=== PATIENT | female | born 1970 | race Caucasian/White ===

== ENCOUNTER 2016-08-28 19:58 | Inpatient (IN) | payer BC ==
[~2016-08-28] VITALS: Ht 160 cm; Wt 54.2 kg
[2016-08-28 20:00] VITALS: BP 151/102; PULSE 90; RESP 18; TEMP 98.2; O2SAT 98
--- NOTE | 2016-08-28 20:05 | NUR ---
Placed in room 03 . Placed on quality assurance monitor, blood pressure machine and pulse oximeter. To gown for exam. Side rails up. Report given to ALYSSA Calero.
--- NOTE | 2016-08-28 20:07 | NUR ---
Patient brought in by ambulance from store. Patient had a witnessed seizure, tonic-clonic per EMT. Patient has a 1cm laceration to posterior scalp. Patient remembers bending down to reach to a shelf and next being in the ambulance. Patient is AAOx4, unlabored breathing, no acute distress.
--- NOTE | 2016-08-28 20:08 | NUR ---
ER MD King at bedside for evaluation
--- NOTE | 2016-08-28 20:10 | NUR ---
Pt to bed 3. ER physician notified. In full C-spine precautions with hard C-collar and backboard in place.
[2016-08-28] MEDS ORDERED: ACETAMINOPHEN 325 MG TABLET PO ONE (20:30)
[2016-08-28] MEDS ORDERED: ACETAMINOPHEN 325 MG TABLET ONE (20:55)
--- NOTE | 2016-08-28 21:03 | NUR ---
Patient arrived with IV placed by EMT. IV is to right wrist, patent, clean, dry & intact.
[2016-08-28 21:10] LABS: BARBITURATE, URINE NEGATIVE (NEG <=200); BENZODIAZEPINE, URINE NEGATIVE (NEG <=150); CANNABINOID, URINE NEGATIVE (NEG <=50); COCAINE, URINE NEGATIVE (NEG <=150); METHAMPHETAMINES SCREEN,URINE NEGATIVE (NEG <=500); OPIATE, URINE NEGATIVE (NEG <=100); PHENCYCLIDINE SCREEN,URINE NEGATIVE (NEG <=25); UR TRICYCLIC ANTIDEPRESSANTS NEGATIVE (NEG <=300); URINE AMPHETAMINE NEGATIVE (NEG <=500); URINE METHADONE NEGATIVE (NEG <=200); URINE OXYCODONE SCREEN NEGATIVE (NEG <=100); URINE PROPOXYPHENE SCREEN NEGATIVE (NEG <=300)
[2016-08-28 21:12] LABS: CALCIUM 9.2 mg/dL (8.4-11.0); CREATININE 0.85 mg/dL (0.55-1.30); POTASSIUM 3.1 mmol/L (3.5-5.1)
[2016-08-28] MEDS ORDERED: LORazepam 2 MG/ML VIAL (FOR ER USE) IVP ONE (21:15)
[2016-08-28] MEDS ORDERED: PROCHLORPERAZINE EDISYLATE 10 MG/2 ML VIAL IVP ONE (21:15)
[2016-08-28 21:16] LABS: BASOPHILS % (AUTO) 0.1 % (0.0-2.0); EOSINOPHILS % (AUTO) 0.5 % (0.0-4.0); HEMATOCRIT 33.8 % (36-48); HEMOGLOBIN 11.5 g/dL (12.0-16.0); LYMPHOCYTES % (AUTO) 18.4 % (20.5-51.5); MEAN CORPUSCULAR HEMOGLOBIN 34 pg (27-31); MEAN CORPUSCULAR HGB CONC 34 % (32-36); MEAN CORPUSCULAR VOLUME 100 fL (79.0-98.0); MONOCYTES # (AUTO) 0.3 K/uL (0.0-1.0); MONOCYTES % (AUTO) 5.4 % (1.7-9.3); NEUTROPHILS # (AUTO) 4.2 K/uL (1.8-7.7); NEUTROPHILS % (AUTO) 75.6 % (40.0-70.0); PLATELET COUNT (AUTO) 180 K/uL (130-430); RED BLOOD CELL COUNT(AUTO) 3.38 MIL/uL (4.2-6.2); RED CELL DISTRIBUTION WIDTH 13.3 % (9.0-15.0); WHITE BLOOD COUNT (AUTO) 5.5 K/uL (4.8-10.8)
[2016-08-28 21:17] LABS: ALBUMIN 3.9 g/dL (3.4-4.8); TOTAL BILIRUBIN 0.6 mg/dL (0.0-1.0); TOTAL PROTEIN, SERUM 7.2 g/dL (6.4-8.3)
--- NOTE | 2016-08-28 22:29 | NUR ---
ER Physician at bedside. C-spine cleared by . Backboard removed with log roll technique. Moves all extremities before and after backboard removal. Hard collar removed by Dr. King.
[2016-08-28] MEDS ORDERED: POTASSIUM CHLORIDE 20 MEQ TAB.PRT.SR PO ONE (22:45)
--- NOTE | 2016-08-28 23:27 | NUR ---
MD Castañeda at bedside evaluating the patient
--- NOTE | 2016-08-28 23:43 | NUR ---
Transfer to [facility] via ACLS protocol. Licensed nurse present. IV present no signs or symptoms of infiltration.
[2016-08-28] MEDS ORDERED: DIPH-TET-PERTUS Vaccine 0.5 ML VIAL (ADACEL) I.M. ONE (23:45)
[2016-08-29 00:15] VITALS: BP 118/71; PULSE 74; RESP 20; TEMP 98.3; O2SAT 99
--- NOTE | 2016-08-29 00:27 | NUR ---
Admission Note Received patient from ER with diagnosis of Seizures. Initial Plan of Care discussed-patient verbalized understanding. Family at bedside. Oriented to room, call light, pain management and safety.
[2016-08-29] MEDS ORDERED: LORazepam 2 MG/ML VIAL IVP PRN ×2 (00:30→00:45)
--- NOTE | 2016-08-29 00:30 | NUR ---
Admission Assessment Received patient from ER, AAO x4, no acute distress noted, is at the bedside. Assessment complete, vital signs stable, no complain of pain at this time. Laceration noted to left scalp. Seizure precautions in place. Education provided to call for assistance if she needs to get out of bed, she verbalized understanding. Plan of care discussed with patient and at the bedside, they verbalized understanding. Patient was oriented to unit and room, able to demonstrate correct use of call light, able to make needs known and encouraged to do so. Call light is within reach, all fall and safety precautions in place, will continue to monitor for change in patient status.
--- NOTE | 2016-08-29 00:35 | NUR ---
CONSULTATION PAGED REASON FOR CONSULTATION:SZ WAS CONSULT CALLED?Y PERSON WHO WAS NOTIFIED:[facility] CONSULTING PHYSICIAN:ERNESTO ALBERTO (FRANCESCO KINGSLEY [employer] W[employer]ER) INSTRUCTIONAL TECHNOLOGY INSTRUCTOR SPECIALTY:NEURO INSTRUCTIONAL TECHNOLOGY INSTRUCTOR PHONE NUMBER:[phone]
[2016-08-29] MEDS ORDERED: levETIRAcetam 500 MG TABLET PO ONE (00:45)
[2016-08-29] MEDS ORDERED: HYDROcodone/ACETAMIN 10-325 MG TAB PO PRN (00:45)
[2016-08-29] MEDS ORDERED: HYDROcodone/ACETAMIN 5-325 MG TAB (NORCO/ VICODIN) PO PRN ×2 (00:45)
[2016-08-29] MEDS ORDERED: TEMAZEPAM 15 MG CAPSULE PO PRN (01:00)
[2016-08-29 01:04] VITALS: BP 118/71; PULSE 79; RESP 20; TEMP 98; O2SAT 99
--- NOTE | 2016-08-29 02:25 | NUR ---
RN Rounds Patient is resting quietly in bed, no acute distress noted. No seizure activity noted. Bedtime snack provided earlier. Reminded patient to call for assistance if she needs to get out of bed, she verbalize understanding. Call light is within reach, all fall and safety precautions in place, will continue to monitor.
[2016-08-29 03:57] VITALS: BP 111/74; PULSE 65; RESP 18; TEMP 98; O2SAT 98
--- NOTE | 2016-08-29 04:32 | NUR ---
RN Rounds Patient is sleeping but easily arousable, no acute distress noted or complain of pain at this time. Vital signs stable, sinus rhythm on the monitor. Seizure and safety precautions in place. Call light is within reach, will continue to monitor closely.
[2016-08-29] MEDS: ACETAMINOPHEN 325 MG TABLET PO PRN ×2 (05:49→20:24)
--- NOTE | 2016-08-29 06:49 | NUR ---
Closing Notes Patient is sleeping but easily arousable, complained of headache earlier, PRN pain medication was administered as ordered per MD. Upon reassessment patient verbalized relief of pain to tolerable level on pain scale. No seizure activity noted throughout shift. Patient is stable, all needs met throughout shift. Will continue to monitor until endorsed to AM nurse at bedside.
--- NOTE | 2016-08-29 07:47 | NUR ---
AM ROUNDS Pt A/O, denies pain at this time...HL to RW flushes well...Pt with dry blood to left side of head due to small laceration...Seizure pads in place...Pt aware of EEG scheduled today...Bed alarm on, call light/phone w/in reach...Will cont to montr
[2016-08-29] MEDS: levETIRAcetam 500 MG TABLET PO SCH ×2 (08:43→20:22)
[2016-08-29] MEDS: ATENOLOL 50 MG TABLET (TENORMIN) PO SCH ×2 (08:48→20:22)
--- NOTE | 2016-08-29 09:10 | NUR ---
RN ROUNDS PATIENT RESTING IN BED, AWAKE, ALERT AND ORIENTED X4, STATES MILD PAIN FROM HEAD LACERATION/HEMATOMA PATIENT STATES SHE HAS TYLENOL ALREADY AND PLACING AN ICE PACK OVER THE SITE HELPS HER, ASSESSMENT COMPLETE, EDUCATED THE PATIENT CURING BIN OPERATOR LIGHT SYSTEM AND TO CALL FOR ANY ASSISTANCE, PATIENT VERBALIZED UNDERSTANDING AT THIS TIME, PATIENT BED IN LOWEST POSITION, TWO SIDE RAILS UP, BED ALARM ON, FALL, SEIZURE AND ASPIRATION PRECAUTIONS IN PLACE, CALL LIGHT NEXT TO THE PATIENT'S HAND, BED CLOSE TO NURSE'S STATION.
--- NOTE | 2016-08-29 11:00 | NUR ---
ROUNDS PT STABLE... AT BEDSIDE...AWAITING EEG...WILL CONT TO MONITOR
[2016-08-29 12:29] VITALS: BP 117/72; PULSE 66; RESP 18; TEMP 98; O2SAT 98
--- NOTE | 2016-08-29 13:11 | NUR ---
PHYSICAL GEOGRAPHER AT BEDSIDE
--- NOTE | 2016-08-29 16:00 | NUR ---
ROUNDS PT STABLE... AT BEDSIDE...WILL CONT TO MONITOR
[2016-08-29 17:05] VITALS: BP 120/73; PULSE 74; RESP 18; TEMP 97.2; O2SAT 98
--- NOTE | 2016-08-29 19:57 | NUR ---
OPENING NOTE Pt. and report received from day shift nurse. Pt. is awake, alert, and oriented, resting quietly in bed and requested for lights to be turned off. Safety and seizure precautions in place. No s/s of seizure activity noted at this time. IV site to right wrist 20g is dry intact and saline locked. SCDS on to bilateral extremities. Educated pt. to use call light for needs and assistance OOB. Call light to right hand. Requested for bed alarm to be off but stated she will use call light for needs. Will continue to monitor.
[2016-08-29 20:20] VITALS: BP 130/75; PULSE 81; RESP 17; TEMP 99; O2SAT 99
--- NOTE | 2016-08-29 20:24 | NUR ---
PAIN Late entry due to pt. care. Pt. c/o "07/19" pain to head. Pt. medicated with Tylenol PO 1 tab as ordered PRN for mild pain. Educated pt. regarding medication and s/e. Pt. verbalized understanding. Safety and seizure precautions in place. Call light to right hand. Encouraged pt. to use call light for needs. Will continue to monitor.
--- NOTE | 2016-08-30 00:05 | NUR ---
ROUNDS Pt. is resting quietly in bed with eyes closed, easily arousable to name. Respirations are even and unlabored with visible chest rise and fall. No s/s of acute distress. No s/s of seizure activity noted at this time. Safety and seizure precautions in place. Bed alarm on. Call light to right hand. Will continue to monitor.
[2016-08-30 00:22] VITALS: BP 89/50; PULSE 60; RESP 16; TEMP 97.4; O2SAT 99
--- NOTE | 2016-08-30 02:13 | NUR ---
PATIENT RESTING Pt. is resting quietly in bed with eyes closed, respirations are even and unlabored with visible chest rise and fall. No s/s of acute distress. Safety and seizure precautions in place. No s/s of seizure activity noted at this time. Bed alarm on. Call light on lap. Will continue to monitor.
--- NOTE | 2016-08-30 03:30 | NUR ---
RECREATIONAL VEHICLE REPAIRER AT BEDSIDE RECREATIONAL VEHICLE REPAIRER assisted pt. to bathroom to void. VSS. Pt. denies any pain or discomfort but stated she usually has a bowel movement daily and has not had one today and requested stool softener. I said we will follow up with MD in the AM. Encouraged pt. to use call light for needs. Safety and seizure precautions are in place. No s/s of seizure activity noted at this time. Bed alarm on. Will continue to monitor.
--- NOTE | 2016-08-30 04:18 | NUR ---
PATIENT RESTING Pt. is resting quietly in bed with eyes closed. Respirations are even and unlabored with visible chest rise and fall. No s/s of acute distress. No s/s of seizure activity noted at this time. Safety and seizure precautions in place. Bed alarm on. Call light to right hand. Will continue to monitor.
[2016-08-30 04:26] VITALS: BP 120/72; PULSE 71; RESP 18; TEMP 96.6; O2SAT 97
--- NOTE | 2016-08-30 05:47 | NUR ---
REQUESTED ORANGE JUICE Pt. requested orange juice. Pt. denies any dizziness, pain or discomfort at this time. Encouraged pt. to use call light for needs. Safety and seizure precautions in place. No s/s of seizure activity noted at this time. Bed alarm on. Will continue to monitor.
--- NOTE | 2016-08-30 06:17 | NUR ---
CLOSING NOTES All needs met throughout shift. Pt. is stable with no s/s of acute distress. Safety, seizure, and fall precautions maintained throughout shift and are in place. No s/s of seizure activity throughout shift. Bed alarm on. Call light to right hand. Pt. requested for curtains to be opened up by window. Denies any pain or discomfort at this time. Will endorse care to oncoming day shift nurse.
--- NOTE | 2016-08-30 06:20 | NUR ---
SCDS Pt. requested for SCDS to be removed at this time but is educated on its use.
[2016-08-30 06:59] LABS: ALANINE AMINOTRANSFERASE 24 U/L (12-78); ALBUMIN 3.3 g/dL (3.4-4.8); ANION GAP 7 (5-15); ASPARTATE AMINOTRANSFERASE 22 U/L (10-37); CALCIUM 8.7 mg/dL (8.4-11.0); CHLORIDE 103 mmol/L (98-107); CREATININE 0.75 mg/dL (0.55-1.30); GLUCOSE 120 mg/dL (70-99); POTASSIUM 4.5 mmol/L (3.5-5.1); SODIUM SERUM 137 mmol/L (136-145); TOTAL BILIRUBIN 0.4 mg/dL (0.0-1.0); TOTAL PROTEIN, SERUM 6.6 g/dL (6.4-8.3); UREA NITROGEN, BLOOD 7 mg/dL (8-21)
[2016-08-30 07:04] LABS: BASOPHILS % (AUTO) 0.2 % (0.0-2.0); EOSINOPHILS # (AUTO) 0.1 K/uL (0.0-0.4); EOSINOPHILS % (AUTO) 1.2 % (0.0-4.0); HEMATOCRIT 34.1 % (36-48); HEMOGLOBIN 11.6 g/dL (12.0-16.0); LYMPHOCYTES # (AUTO) 1.5 K/uL (1.0-5.5); LYMPHOCYTES % (AUTO) 21.2 % (20.5-51.5); MEAN CORPUSCULAR HEMOGLOBIN 34 pg (27-31); MEAN CORPUSCULAR HGB CONC 34 % (32-36); MEAN CORPUSCULAR VOLUME 101 fL (79.0-98.0); MONOCYTES # (AUTO) 0.4 K/uL (0.0-1.0); MONOCYTES % (AUTO) 5.3 % (1.7-9.3); NEUTROPHILS # (AUTO) 4.9 K/uL (1.8-7.7); NEUTROPHILS % (AUTO) 72.1 % (40.0-70.0); PLATELET COUNT (AUTO) 173 K/uL (130-430); RED BLOOD CELL COUNT(AUTO) 3.38 MIL/uL (4.2-6.2); RED CELL DISTRIBUTION WIDTH 13.8 % (9.0-15.0); WHITE BLOOD COUNT (AUTO) 6.9 K/uL (4.8-10.8)
--- NOTE | 2016-08-30 08:00 | NUR ---
AM Notes Pt aaox4 with no complaints of pain or discomfort. No signs of seizure activity. No distress noted. Pt anxious to go home. Educated about fall and safety precautions. Seizure precautions with padded rails in place. Encouraged to call for assistance. Call light within reach. Will monitor.
[2016-08-30 08:31] VITALS: BP 114/62; PULSE 66; RESP 18; TEMP 98.5; O2SAT 99
[2016-08-30] MEDS: levETIRAcetam 500 MG TABLET PO SCH (09:13)
[2016-08-30] MEDS: ATENOLOL 50 MG TABLET (TENORMIN) PO SCH (09:15)
--- NOTE | 2016-08-30 09:45 | NUR ---
Dr. Garry DESAI doing rounds. Plan of care discussed.
--- NOTE | 2016-08-30 10:00 | NUR ---
Rounds Pt awake resting in bed. No signs of seizure activity or discomfort noted. Encouraged to call for assistance. Will monitor.
--- NOTE | 2016-08-30 10:54 | NUR ---
CALLED NEUROLOGIST, DR QUARLES, RE: CLEARANCE TO DISCHARGE PT. SPOKE TO VIANEY
[2016-08-30] MEDS ORDERED: LEVE750T4 PO (11:03)
--- NOTE | 2016-08-30 11:34 | NUR ---
Dr. Garay Called and spoke with MD. States patient is cleared to go home but ordered not to drive, notify DMV and to see MD in his office in 2 weeks.
[2016-08-30 11:39] VITALS: BP 116/63; PULSE 64; RESP 18; TEMP 98.2; O2SAT 99
--- NOTE | 2016-08-30 11:47 | NUR ---
Social Service Note: CHICKEN HATCHERY HELPER has completed DMV form to report pt's seizure; DMV form has been mailed to DMV Safety Office in [place].
--- NOTE | 2016-08-30 12:05 | NUR ---
Discharge Discharge patient with . Transitional care instructions, handout and prescription from Keppra 750mg explained and given. Verbalized understanding. D/C IV saline locked to right forearm and dressing applied. Vital signs stable. Pt left floor via w/c to private vehicle. No distress noted.
[2016-08-30 12:18] VITALS: BP 119/71; PULSE 67; RESP 16; TEMP 97.3; O2SAT 97
== END 2016-08-30 12:05 | disposition home or self-care (01) | DRG 101 ==
LOC: SED 19:58 → STU 23:43 → SMU 08-29 13:00
PROVIDERS: ADMIT Internal Medicine; ATTEND Internal Medicine
PROC: 3E10X8Z Irrigation of Skin and Mucous Membranes using Irrigating Substance (ICD-10-PCS; principal; 2016-08-28)
DX: R56.9 Unspecified convulsions (principal); I10 Essential (primary) hypertension; F17.200 Nicotine dependence, unspecified, uncomplicated; S01.01XA Laceration without foreign body of scalp, initial encounter; E86.0 Dehydration; D50.9 Iron deficiency anemia, unspecified; E87.6 Hypokalemia; G43.909 Migraine, unspecified, not intractable, without status migrainosus; W19.XXXA Unspecified fall, initial encounter; Y93.89 Activity, other specified; Y92.89 Other specified places as the place of occurrence of the external cause; Y99.8 Other external cause status
CPT/HCPCS: 36415; 70450-TC; 72125-TC; 80053; 80307; 83735-TC; 85025; 90715; 93005; 95816; 96374; 96375; 99285; J0780; J2060

== ENCOUNTER 2022-10-20 13:55 | Emergency (ER) | payer BC ==
[~2022-10-20] VITALS: Ht 160 cm; Wt 40.4 kg
[~2022-10-20 13:55] MED LIST: LEVE750T4 PO
[2022-10-20] MEDS ORDERED: ONDANSETRON HCL 4 MG/2 ML VIAL IVP ONE (14:15)
[2022-10-20] MEDS ORDERED: KETOROLAC TROMETHAMINE 30 MG VIAL IVP ONE (14:15)
[2022-10-20] MEDS ORDERED: FOLIC ACID 1 MG, THIAMINE HCL 100 MG, MAGNESIUM SULFATE 1 GM, MVI 10 ML in NACL 0.9% 1,... IV ONE ×20 (14:15)
[2022-10-20 14:16] VITALS: BP_SYST 130
[2022-10-20 15:22] LABS: ANION GAP 9 (5-15); CALCIUM 8.5 mg/dL (8.4-11.0); CHLORIDE 105 mmol/L (98-107); CREATININE 0.58 mg/dL (0.55-1.30); GFR AFRICAN AMERICAN 140 mL/min (>90); GLUCOSE 102 mg/dL (70-99); UREA NITROGEN, BLOOD 7 mg/dL (8-21)
[2022-10-20 15:29] LABS: ALANINE AMINOTRANSFERASE 34 U/L (12-78); ALBUMIN 3.3 g/dL (3.4-4.8); ASPARTATE AMINOTRANSFERASE 57 U/L (10-37); BASOPHILS # (AUTO) 0.1 K/uL (0.0-0.2); EOSINOPHILS # (AUTO) 0.2 K/uL (0.0-0.4); LIPASE 302 U/L (73-393); MONOCYTES # (AUTO) 0.4 K/uL (0.0-1.0); TOTAL BILIRUBIN 0.4 mg/dL (0.0-1.0)
[2022-10-20] MEDS ORDERED: THIAMINE HCL 100 MG in NS 50 ML IV ONE (15:30)
[2022-10-20 15:36] LABS: BASOPHILS % (AUTO) 0.9 % (0.0-2.0); EOSINOPHILS % (AUTO) 3.5 % (0.0-4.0); HEMATOCRIT 35.3 % (36-48); LYMPHOCYTES # (AUTO) 3.1 K/uL (1.0-5.5); LYMPHOCYTES % (AUTO) 53.6 % (20.5-51.5); MEAN CORPUSCULAR HEMOGLOBIN 39 pg (27-31); MEAN CORPUSCULAR HGB CONC 34 % (32-36); MEAN CORPUSCULAR VOLUME 113 fL (79.0-98.0); RED BLOOD CELL COUNT(AUTO) 3.13 MIL/uL (4.2-6.2); RED CELL DISTRIBUTION WIDTH 16.9 % (9.0-15.0); WHITE BLOOD COUNT (AUTO) 5.7 K/uL (4.8-10.8)
[2022-10-20 15:56] LABS: PLATELET COUNT (AUTO) 359 K/uL (130-430)
[2022-10-20] MEDS ORDERED: THIAMINE HCL 100 MG, MAGNESIUM SULFATE 1 GM in NS 100 ML IV ONE (16:00)
[2022-10-20] MEDS ORDERED: FOLIC ACID 1 MG, MVI 10 ML in NACL 0.9% 1,000 ML IV ONE (16:00)
[2022-10-20] MEDS ORDERED: KETOROLAC TROMETHAMINE 60 MG/2 ML VIAL IM ONE (16:33)
[2022-10-20] MEDS ORDERED: ONDANSETRON HCL 4 MG/2 ML VIAL ONE (16:33)
[2022-10-20 23:39] VITALS: BP_SYST 131
== END 2022-10-20 23:39 | disposition home or self-care (01) ==
LOC: SED 13:55
DX: F10.129 Alcohol abuse with intoxication, unspecified (principal); R45.1 Restlessness and agitation; R51.9 Headache, unspecified; F17.200 Nicotine dependence, unspecified, uncomplicated; Z79.899 Other long term (current) drug therapy; Y90.6 Blood alcohol level of 120-199 mg/100 ml
CPT/HCPCS: 99285; 96365; 96366; 70450; 96375; 80053; 83880; 83690; 85025; 84484; 36415; 93005; 76376; J3490; J1885; J3475; J2405; J3411; J7030